=== PATIENT | female | born 1985 | race Caucasian/White ===

== ENCOUNTER 2016-09-18 23:15 | Emergency (ER) | payer SELFPAY ==
[~2016-09-18 23:15] MED LIST: ALPR1TAB2 PO; FERR-26 PO; ONDA4TAB7 PO; PRED20TA PO; PROAIR HFA8.5 GM INH; TRAZ100T12
[2016-09-19] MEDS ORDERED: IV NORMAL SALINE 1000ML BAG 1,000 ML IV ONE (00:15)
--- NOTE | 2016-09-19 00:24 | PHYS DOC ---
Past Medical History Past Medical History: No Pertinent History Past Surgical History: Cholecystectomy Alcohol Use: None Drug Use: None Adult General Chief Complaint Chief Complaint: VOMITING IN HPI HPI Patient is a 30 year old female who presents emergency room today with complaint of a headache, nausea, vomiting and diarrhea that began 2 days ago. Patient reports that she was thrown up 2-3 times within the past 24 hours. She denies any bilious, bloody or coffee-ground emesis. She reports 2 loose bowel movements within the past 24 hours. She denies any black or bloody stools. She denies abdominal pain. Patient reports that she is approximately 7 weeks . She denies pelvic pain, vaginal bleeding or vaginal discharge. She denies dysuria, hematuria or flank pain. She denies any fevers or chills. Patient states that she's been having a headache and which Tylenol has not been helping to relieve her headache. She attributes to this is been dehydrated. She states she only has headaches like this when she is dehydrated is convinced that if she receives a IV, she will feel much better. Review of Systems Review of Systems Constitutional: Denies fever or chills [] Eyes: Denies change in visual acuity, redness, or eye pain [] HENT: Denies nasal congestion or sore throat [] Respiratory: Denies cough or shortness of breath [] Cardiovascular: No additional information not addressed in HPI [] GI: Denies abdominal pain, nausea, vomiting, bloody stools or diarrhea [] : Denies dysuria or hematuria [] Musculoskeletal: Denies back pain or joint pain [] Integument: Denies rash or skin lesions [] Neurologic: Denies headache, focal weakness or sensory changes [] Endocrine: Denies polyuria or polydipsia [] Current Medications Current Medications Current Medications Medications (Trade) Dose Ordered Sig/Isabel Start Time Stop Time Status Last Admin Dose Admin Diphenhydramine HCl 25 mg 25 mg 1X ONCE 09/19/16 01:15 09/19/16 01:16 DC 09/19/16 01:05 25 MG Metoclopramide HCl (Reglan) 10 mg 1X ONCE 09/19/16 01:15 09/19/16 01:16 DC 09/19/16 01:04 10 MG Sodium Chloride (Iv Sodium Chloride 0.9% 500ml Bag) 500 ml @ 500 mls/hr 1X ONCE 09/19/16 01:15 09/19/16 02:14 09/19/16 01:04 500 MLS/HR Sodium Chloride (Iv Sodium Chloride 0.9% 1000ml Bag) 1,000 ml @ 1,000 mls/hr 1X ONCE 09/19/16 00:15 09/19/16 01:14 DC 09/19/16 00:19 1,000 MLS/HR Allergies Allergies Allergies Coded Allergies Type Severity Reaction Last Updated Verified No Known Drug Allergies 11/27/14 No Physical Exam Physical Exam Constitutional: Well developed, well nourished, no acute distress, non-toxic appearance. Patient is lying in a left lateral, position no acute distress. HENT: Normocephalic, atraumatic, bilateral external ears normal, oropharynx tachycardia, no oral exudates, nose normal. [] Eyes: PERRLA, EOMI, conjunctiva normal, no discharge. [] Neck: Normal range of motion, no tenderness, supple, no stridor. There is no meningismus. There is no cervical lymphadenopathy. Cardiovascular:Heart rate 102 with regular rhythm, no murmur Lungs & Thorax: Bilateral breath sounds clear to auscultation [] Abdomen: Abdomen is soft and nondistended. There are normoactive bowel sounds in all 4 quadrants. There is no palpable defect to the abdominal wall or pulsatile mass. There is no focal area of tenderness, rebound or guarding. Skin: Warm, dry, no erythema, no rash. Back: No tenderness, no CVA tenderness. [] Extremities: No tenderness, no cyanosis, no clubbing, ROM intact, no edema. [] Neurologic: Alert and oriented X 3, normal motor function, normal sensory function, no focal deficits noted. Psychologic: Affect normal, judgement normal, mood normal. [] Current Patient Data Vital Signs Vital Signs Date Time Temp Pulse Resp B/P Pulse Ox O2 Delivery O2 Flow Rate FiO2 09/19/16 01:00 93 16 100/62 99 09/18/16 23:20 97.9 Room Air 97.9 EKG EKG [] Radiology/Procedures Radiology/Procedures [] Course & Med Decision Making Course & Med Decision Making Looking back in to patient's visit history here at this emergency department, she appears to have some underlying psychiatric problems. At this time, there is no point of contention this patient is convinced that a liter of normal saline will fix her problems. Patient received a liter of normal saline. She states that she still has a headache after seeing liter saline. Repeat order a half liter more saline and given some Reglan and Benadryl on board to help with her headache. I informed the patient that we would not be using any nonsteroidal anti- inflammatories or narcotics to treat her headache. After receiving the Reglan and Benadryl, patient reported that she felt much better like to go home. Dragon Disclaimer Dragon Disclaimer This electronic medical record was generated, in whole or in part, using a voice recognition dictation system. Departure Departure Impression: Primary Impression: Viral syndrome Disposition: HOME, SELF-CARE Condition: IMPROVED Referrals: Shayna BEAUCHAMP MD (PCP) Patient Instructions: Viral Syndrome Additional Instructions: 1. Take the medication as prescribed. You can also continue to take acetaminophen every 4-6 hours. 2. Review the discharge instructions provided for self-care and reasons to return to the emergency department. 3. You can call [phone] Tuesday to schedule an appointment with an web marketing manager to establish ongoing care for your current . Scripts Diphenhydramine Hcl (Benadryl)25 Mg Capsule1 Cap PO every 8 hours eadache and nausea #20 CAP Ref 1 Prov:SHERRI SAMPSON 09/19/16 Metoclopramide Hcl (Reglan)10 Mg Tablet1 Tab PO every 8 hours PRN headache and nausea #20 TAB Prov:SHERRI SAMPSON 09/19/16 SHERRI SAMPSON Sep 19, 2016 00:24
[2016-09-19 01:00] VITALS: BP 100/62
[2016-09-19] MEDS ORDERED: METO10TA81 PO (01:13)
[2016-09-19] MEDS ORDERED: DIPH25CA58 PO (01:13)
[2016-09-19] MEDS ORDERED: IV NORMAL SALINE 500ML BAG 500 ML IV ONE (01:15)
[2016-09-19] MEDS ORDERED: METOCLOPRAMIDE HCL 10 MG/2 ML VIAL. IV ONE (01:15)
[2016-09-19] MEDS ORDERED: DIPHENHYDRAMINE 50 MG/ML VIAL IVP ONE (01:15)
== END 2016-09-19 01:35 | disposition home or self-care (01) ==
LOC: ER 23:15
DX: O98.511 Other viral diseases complicating pregnancy, first trimester (principal); B34.9 Viral infection, unspecified; Z3A.01 Less than 8 weeks gestation of pregnancy
CPT/HCPCS: 81025; 96361; 96374; 96375; 99284; J1200; J2765; J7030; J7040

== ENCOUNTER 2017-08-24 20:02 | Emergency (ER) | payer OTHER ==
[2017-08-24 20:35] LABS: URINE HCG POC HCG NEGATIVE (Negative)
[2017-08-24] MEDS: ONDANSETRON ODT 4 MG TAB.RAPDIS. PO (21:26)
== END 2017-08-24 21:27 | disposition home or self-care (01) ==
LOC: ER 20:02
DX: R11.2 Nausea with vomiting, unspecified (principal); R19.7 Diarrhea, unspecified; Z90.49 Acquired absence of other specified parts of digestive tract
CPT/HCPCS: 81025; 99283; Q0162

== ENCOUNTER 2019-10-07 20:29 | Emergency (ER) | payer MEDICAID, OTHER ==
[~2019-10-07] VITALS: Ht 144.8 cm; Wt 49.5 kg
[~2019-10-07 20:29] MED LIST changes: +ALBU2.5V8 INH; +AZIT250T PO; +DIPH25CA58 PO; -FERR-26 PO; +FERR325T14 PO; +METO10TA81 PO; -PROAIR HFA8.5 GM INH; +TRAZ-123; -TRAZ100T12
[2019-10-07] MEDS ORDERED: IV NORMAL SALINE 1000ML BAG 1,000 ML IV SCH (21:15)
[2019-10-07] MEDS ORDERED: ONDANSETRON PF 4 MG/2 ML VIAL. IV ONE (21:15)
[2019-10-07 21:32] LABS: BASO # 0.1 x10^3/uL (0.0-0.2); BASO % 1 % (0-3); EOS # 0.1 x10^3/uL (0.0-0.7); EOS % 2 % (0-3); HEMATOCRIT 41.2 % (36.0-47.0); HEMOGLOBIN 13.7 g/dL (12.0-15.5); LYMPH # 2.4 x10^3/uL (1.0-4.8); LYMPH % 31 % (24-48); MEAN CORPUSCULAR HEMOGLOBIN 29 pg (25-35); MEAN CORPUSCULAR HGB CONC 33 g/dL (31-37); MEAN CORPUSCULAR VOLUME 87 fL (79-100); MONO # 0.5 x10^3/uL (0.0-1.1); MONO % 6 % (0-9); NEUT # 4.8 x10^3/uL (1.8-7.7); NEUT % 60 % (31-73); PLATELET COUNT 269 x10^3/uL (140-400); RED BLOOD COUNT 4.74 x10^6/uL (3.50-5.40); RED CELL DISTRIBUTION WIDTH 13.7 % (11.5-14.5); WHITE BLOOD COUNT 7.9 x10^3/uL (4.0-11.0)
[2019-10-07 21:43] LABS: CALCIUM 8.6 mg/dL (8.5-10.1); CREATININE 0.8 mg/dL (0.6-1.0); GFR 83.7; POTASSIUM 3.6 mmol/L (3.5-5.1)
[2019-10-07 21:48] LABS: ALBUMIN 4.2 g/dL (3.4-5.0); ALBUMIN/GLOBULIN RATIO 1.2 (1.0-1.7); TOTAL BILIRUBIN 0.7 mg/dL (0.2-1.0); TOTAL PROTEIN 7.7 g/dL (6.4-8.2)
[2019-10-07 22:17] LABS: BILIRUBIN,URINE NEGATIVE (NEG); CLARITY,URINE CLEAR; COLOR,URINE YELLOW; NITRITE,URINE NEGATIVE (NEG); PROTEIN,URINE NEGATIVE (NEG-TRACE)
--- NOTE | 2019-10-07 22:26 | PHYS DOC ---
Past Medical History Past Medical History: Anxiety Past Surgical History: Cholecystectomy Smoking Status: Never Smoker Alcohol Use: None Drug Use: None Adult General Chief Complaint Chief Complaint: NAUSEA/VOMITING/DIARRHA HPI HPI Patient is a 33 year old female with history of anxiety and cholecystectomy who presents with complaint of nausea and vomiting and diarrhea. Patient complaining of episode of nausea and vomiting and diarrhea for the last 3 days and states she had 4 episodes of diarrhea and 3 episodes of vomiting today without abdominal pain, fever and chills. Patient complaining of decrease of appetite and urine output and states she had sick contact at home. Review of Systems Review of Systems Constitutional: Denies fever or chills [] Eyes: Denies change in visual acuity, redness, or eye pain [] HENT: Denies nasal congestion or sore throat [] Respiratory: Denies cough or shortness of breath [] Cardiovascular: No additional information not addressed in HPI [] GI: Reports abdominal pain, nausea, vomiting, diarrhea [] : Denies dysuria or hematuria [] Musculoskeletal: Denies back pain or joint pain [] Integument: Denies rash or skin lesions [] Neurologic: Denies headache, focal weakness or sensory changes [] Endocrine: Denies polyuria or polydipsia [] All other systems were reviewed and found to be within normal limits, except as documented in this note. Current Medications Current Medications Current Medications Medications (Trade) Dose Ordered Sig/Isabel Start Time Stop Time Status Last Admin Dose Admin Ondansetron HCl (Zofran) 4 mg 1X ONCE 10/07/19 21:15 10/07/19 21:16 DC 10/07/19 21:28 4 MG Sodium Chloride 1,000 ml @ 1,000 mls/hr Q1H 10/07/19 21:15 10/07/19 22:14 DC 10/07/19 21:28 1,000 MLS/HR Allergies Allergies Allergies Coded Allergies Type Severity Reaction Last Updated Verified No Known Drug Allergies 11/27/14 No Physical Exam Physical Exam Constitutional: Well developed, well nourished, mild distress, non-toxic appearance. [] HENT: Normocephalic, atraumatic, bilateral external ears normal, oropharynx moist, no oral exudates, nose normal. [] Eyes: PERRLA, EOMI, conjunctiva normal, no discharge. [] Neck: Normal range of motion, no tenderness, supple, no stridor. [] Cardiovascular:Heart rate regular rhythm, no murmur [] Lungs & Thorax: Bilateral breath sounds clear to auscultation [] Abdomen: Bowel sounds normal, soft, no tenderness, no masses, no pulsatile masses. [] Skin: Warm, dry, no erythema, no rash. [] Back: No tenderness, no CVA tenderness. [] Extremities: No tenderness, no cyanosis, no clubbing, ROM intact, no edema. [] Neurologic: Alert and oriented X 3, normal motor function, normal sensory function, no focal deficits noted. [] Psychologic: Affect normal, judgement normal, mood normal. [] Current Patient Data Vital Signs Vital Signs Date Time Temp Pulse Resp B/P (MAP) Pulse Ox O2 Delivery O2 Flow Rate FiO2 10/07/19 22:42 70 16 108/69 (82) 98 Room Air 10/07/19 20:35 98.1 98.1 Lab Values Laboratory Tests Test 10/07/19 21:21 10/07/19 22:09 White Blood Count 7.9 x10^3/uL (4.0-11.0) Red Blood Count 4.74 x10^6/uL (3.50-5.40) Hemoglobin 13.7 g/dL (12.0-15.5) Hematocrit 41.2 % (36.0-47.0) Mean Corpuscular Volume 87 fL (79-100) Mean Corpuscular Hemoglobin 29 pg (25-35) Mean Corpuscular Hemoglobin Concent 33 g/dL (31-37) Red Cell Distribution Width 13.7 % (11.5-14.5) Platelet Count 269 x10^3/uL (140-400) Neutrophils (%) (Auto) 60 % (31-73) Lymphocytes (%) (Auto) 31 % (24-48) Monocytes (%) (Auto) 6 % (0-9) Eosinophils (%) (Auto) 2 % (0-3) Basophils (%) (Auto) 1 % (0-3) Neutrophils # (Auto) 4.8 x10^3/uL (1.8-7.7) Lymphocytes # (Auto) 2.4 x10^3/uL (1.0-4.8) Monocytes # (Auto) 0.5 x10^3/uL (0.0-1.1) Eosinophils # (Auto) 0.1 x10^3/uL (0.0-0.7) Basophils # (Auto) 0.1 x10^3/uL (0.0-0.2) Sodium Level 143 mmol/L (136-145) Potassium Level 3.6 mmol/L (3.5-5.1) Chloride Level 107 mmol/L (98-107) Carbon Dioxide Level 25 mmol/L (21-32) Anion Gap 11 (6-14) Blood Urea Nitrogen 11 mg/dL (7-20) Creatinine 0.8 mg/dL (0.6-1.0) Estimated GFR (Cockcroft-Gault) 83.7 BUN/Creatinine Ratio 14 (6-20) Glucose Level 99 mg/dL (70-99) Calcium Level 8.6 mg/dL (8.5-10.1) Total Bilirubin 0.7 mg/dL (0.2-1.0) Aspartate Amino Transferase (AST) 16 U/L (15-37) Alanine Aminotransferase (ALT) 19 U/L (14-59) Alkaline Phosphatase 57 U/L (46-116) Creatine Kinase 83 U/L (26-192) Total Protein 7.7 g/dL (6.4-8.2) Albumin 4.2 g/dL (3.4-5.0) Albumin/Globulin Ratio 1.2 (1.0-1.7) Lipase 113 U/L (73-393) Urine Collection Type Unknown Urine Color Yellow Urine Clarity Clear Urine pH 5.0 Urine Specific Mchenry >=1.030 Urine Protein Negative mg/dL (NEG-TRACE) Urine Glucose (UA) Negative mg/dL (NEG) Urine Ketones (Stick) Negative mg/dL (NEG) Urine Blood Negative (NEG) Urine Nitrite Negative (NEG) Urine Bilirubin Negative (NEG) Urine Urobilinogen Dipstick 1.0 mg/dL (0.2 mg/dL) Urine Leukocyte Esterase Negative (NEG) Urine RBC 0 /HPF (0-2) Urine WBC 0 /HPF (0-4) Urine Squamous Epithelial Cells Many /LPF Urine Bacteria Few /HPF (0-FEW) Urine Mucus Mod /LPF Laboratory Tests 10/07/19 21:21 Laboratory Tests 10/07/19 21:21 EKG EKG [] Radiology/Procedures Radiology/Procedures [] Course & Med Decision Making Course & Med Decision Making Pertinent Labs reviewed. (See chart for details) I've spoken with the patient and/or caregivers. I've explained the patient's condition, diagnosis and treatment plan based on information available to me at this time. I've answered the patient's and/or caregivers questions and addressed any concerns. The patient and/or caregivers have a good understanding the patient's diagnosis, condition and treatment plan as can be expected at this point. Vital signs have been stabilized. The patient's condition is stable for discharge from the emergency department. The patient will pursue further outpatient evaluation with her primary care provider or other designated consulting physician as outlined in the discharge instructions. Patient and/or caregivers are agreeable to this plan of care and follow-up instructions have been explained in detail. The patient and/or caregivers have received these instructions in written format and expressed understanding of these discharge instructions. The patient and her caregivers are aware that if any significant change in condition or worsening of symptoms should prompt him to immediately return to this of the closest emergency department. If an emergent department is not readily available I would encourage him to call 911. Dragon Disclaimer Dragon Disclaimer This electronic medical record was generated, in whole or in part, using a voice recognition dictation system. Departure Departure Impression: Primary Impression: Acute gastroenteritis Disposition: 01 HOME, SELF-CARE (At 2230) Condition: IMPROVED Referrals: Shayna BEAUCHAMP MD (PCP) Patient Instructions: Viral Gastroenteritis Additional Instructions: Drink plenty of liquids Follow-up with your primary care physician in 3-5 days Return to ER if not getting better Do not eat solid food for the next 24 hours May take Imodium for diarrhea as needed Thank you for visiting [facility]. We appreciate you trusting us with your care. If any additional problems come up don't hesitate to return to visit us. Please follow up with your primary care provider so they can plan additional care if needed and know about the problem that you had. If symptoms worsen come back to the Emergency Department. Any concerning symptoms that start such as chest pain, shortness of air, weakness or numbness on one side of the body, running high fevers or any other concerning symptoms return to the ER. Scripts Ondansetron Hcl (ZOFRAN) 4 Mg Tablet 1 TAB PO PRN Q6-8HRS for nausea, #12 TAB Prov: LAWRENCE BURCH MD 10/07/19 LAWRENCE BURCH MD Oct 07, 2019 22:25
[2019-10-07 22:32] LABS: BACTERIA,URINE FEW /HPF (0-FEW); RBC,URINE 0 /HPF (0-2); SQUAMOUS EPITHELIAL CELL,UR MANY /LPF; WBC,URINE 0 /HPF (0-4)
[2019-10-07] MEDS ORDERED: ONDA4TAB7 PO (22:36)
[2019-10-07 22:42] VITALS: BP 108/69
== END 2019-10-07 23:07 | disposition home or self-care (01) ==
LOC: ER 20:29
DX: K52.9 Noninfective gastroenteritis and colitis, unspecified (principal); Z90.49 Acquired absence of other specified parts of digestive tract
CPT/HCPCS: 36415; 80053; 81001; 82550; 83690; 85025; 96361; 96374; 99285; J2405; J7030

== ENCOUNTER 2019-12-01 14:05 | Emergency (ER) | payer MEDICAID ==
[~2019-12-01] VITALS: Ht 144.8 cm; Wt 50.0 kg
[2019-12-01 14:20] VITALS: BP 141/90
--- NOTE | 2019-12-01 14:33 | PHYS DOC ---
Past Medical History Past Medical History: Anxiety Past Surgical History: Cholecystectomy Smoking Status: Never Smoker Alcohol Use: None Drug Use: None General Adult EDM: Chief Complaint: VAGINAL BLEEDING HPI: HPI: Patient is a 34-year-old female - 1 miscarriage and 1 who presents stating she thinks she is 2 to 3 weeks . She took a test last night and it was positive. She states she had some spotting today and became concerned that she is having another miscarriage. She does have some lower abdominal discomfort. No fever chills or sweats no nausea or vomiting. [] Review of Systems: Review of Systems: Constitutional: Denies fever or chills. [] Eyes: Denies change in visual acuity. [] HENT: Denies nasal congestion or sore throat. [] Respiratory: Denies cough or shortness of breath. [] Cardiovascular: Denies chest pain or edema. [] GI: Denies abdominal pain, nausea, vomiting, bloody stools or diarrhea. [] : Per HPI [] Musculoskeletal: Denies back pain or joint pain. [] Integument: Denies rash. [] Neurologic: Denies headache, focal weakness or sensory changes. [] Endocrine: Denies polyuria or polydipsia. [] Lymphatic: Denies swollen glands. [] Psychiatric: Denies depression or anxiety. [] Heart Score: Risk Factors: Risk Factors: DM, Current or recent (<one month) smoker, HTN, HLP, family history of CAD, obesity. Risk Scores: Score 0 - 3: 2.5% MACE over next 6 weeks - Discharge Home Score 4 - 6: 20.3% MACE over next 6 weeks - Admit for Clinical Observation Score 7 - 10: 72.7% MACE over next 6 weeks - Early Invasive Strategies Allergies: Allergies: Allergies Coded Allergies Type Severity Reaction Last Updated Verified No Known Drug Allergies 11/27/14 No Physical Exam: PE: Constitutional: Well developed, well nourished, no acute distress, non-toxic appearance. [] HENT: Normocephalic, atraumatic, bilateral external ears normal, oropharynx moist, no oral exudates, nose normal. [] Eyes: PERRLA, EOMI, conjunctiva normal, no discharge. [] Neck: Normal range of motion, no tenderness, supple, no stridor. [] Cardiovascular:Heart rate regular rhythm, no murmur [] Lungs & Thorax: Bilateral breath sounds clear to auscultation [] Abdomen: Bowel sounds normal, soft, no tenderness, no masses, no pulsatile masses. [] Skin: Warm, dry, no erythema, no rash. [] Back: No tenderness, no CVA tenderness. [] Extremities: No tenderness, no cyanosis, no clubbing, ROM intact, no edema. [] Neurologic: Alert and oriented X 3, normal motor function, normal sensory function, no focal deficits noted. [] Psychologic: Anxious [] Current Patient Data: Labs: Laboratory Tests Test 12/01/19 14:16 POC Urine HCG, Qualitative Hcg negative (Negative) EKG: EKG: [] Radiology/Procedures: Radiology/Procedures: [] Course & Med Decision Making: Course & Med Decision Making Pertinent Labs and Imaging studies reviewed. (See chart for details) [] Dragon Disclaimer: Dragon Disclaimer: This electronic medical record was generated, in whole or in part, using a voice recognition dictation system. Departure Departure Impression: Primary Impression: Dysfunctional uterine bleeding Disposition: HOME, SELF-CARE Condition: STABLE Referrals: Shayna BEAUCHAMP MD (PCP) Patient Instructions: Dysmenorrhea Additional Instructions: Follow-up with your primary care physician or your thread singer in the next 1 week for recheck. FLACO MORRISSEY DO December 01, 2019 14:33
[2019-12-01 14:47] LABS: BILIRUBIN,URINE NEGATIVE (NEG); CLARITY,URINE CLEAR; COLOR,URINE YELLOW; NITRITE,URINE NEGATIVE (NEG); PH,URINE 5.5 (<5.0-8.0); PROTEIN,URINE NEGATIVE (NEG-TRACE); UROBILINOGEN,URINE 0.2 mg/dL (0.2 mg/dL)
[2019-12-01 15:04] LABS: BACTERIA,URINE 0 /HPF (0-FEW); RBC,URINE TNTC /HPF (0-2); SQUAMOUS EPITHELIAL CELL,UR OCC /LPF; WBC,URINE RARE /HPF (0-4)
[2019-12-01 15:22] LABS: BASO # 0.1 x10^3/uL (0.0-0.2); BASO % 1 % (0-3); EOS # 0.1 x10^3/uL (0.0-0.7); EOS % 1 % (0-3); HEMATOCRIT 40.1 % (36.0-47.0); HEMOGLOBIN 13.6 g/dL (12.0-15.5); LYMPH # 1.9 x10^3/uL (1.0-4.8); LYMPH % 19 % (24-48); MEAN CORPUSCULAR HEMOGLOBIN 29 pg (25-35); MEAN CORPUSCULAR HGB CONC 34 g/dL (31-37); MEAN CORPUSCULAR VOLUME 86 fL (79-100); MONO # 0.5 x10^3/uL (0.0-1.1); MONO % 6 % (0-9); NEUT # 7.1 x10^3/uL (1.8-7.7); NEUT % 73 % (31-73); PLATELET COUNT 317 x10^3/uL (140-400); RED BLOOD COUNT 4.68 x10^6/uL (3.50-5.40); WHITE BLOOD COUNT 9.7 x10^3/uL (4.0-11.0)
[2019-12-01 15:30] LABS: CALCIUM 8.8 mg/dL (8.5-10.1); CREATININE 0.8 mg/dL (0.6-1.0); GFR 83.1; POTASSIUM 3.5 mmol/L (3.5-5.1)
[2019-12-01 15:36] LABS: ALBUMIN 3.9 g/dL (3.4-5.0); TOTAL BILIRUBIN 0.6 mg/dL (0.2-1.0); TOTAL PROTEIN 7.8 g/dL (6.4-8.2)
== END 2019-12-01 15:35 | disposition home or self-care (01) ==
LOC: ER 14:05
DX: N93.8 Other specified abnormal uterine and vaginal bleeding (principal); Z90.49 Acquired absence of other specified parts of digestive tract
CPT/HCPCS: 36415; 80053; 81001; 81025; 84702; 85025; 86900; 86901; 99283

== ENCOUNTER 2020-01-24 13:35 | Emergency (ER) | payer SELFPAY ==
[~2020-01-24] VITALS: Ht 144.8 cm; Wt 48.6 kg
[2020-01-24] MEDS ORDERED: IV NORMAL SALINE 1000ML BAG 1,000 ML IV SCH (13:55)
[2020-01-24 14:06] LABS: BILIRUBIN,URINE NEGATIVE (NEG); CLARITY,URINE CLEAR; NITRITE,URINE POSITIVE (NEG); PH,URINE 5.5 (<5.0-8.0); PROTEIN,URINE NEGATIVE (NEG-TRACE)
[2020-01-24 14:08] LABS: COLOR,URINE YELLOW
[2020-01-24 14:10] LABS: SQUAMOUS EPITHELIAL CELL,UR MOD /LPF
[2020-01-24 14:11] LABS: BACTERIA,URINE MODERATE /HPF (0-FEW); RBC,URINE 0 /HPF (0-2)
--- NOTE | 2020-01-24 14:11 | PHYS DOC ---
Past Medical History Past Medical History: No Pertinent History, Anxiety Past Surgical History: No Surgical History, Cholecystectomy Smoking Status: Never Smoker Alcohol Use: None Drug Use: None General Adult EDM: Chief Complaint: URINARY RETENTION HPI: HPI: Patient is a 34 year old female who presents with feeling like she is not emptying her bladder completely which is causing her to go to the bathroom more frequently. Patient reports that symptoms started 1 week ago. Her last menstrual period was December 31, 2019 she reports that she did take a test and it was negative. Patient denies any dysuria, fevers, chest pain, shortness of breath, hematuria, nausea vomiting or diarrhea, abdominal pain,, vaginal discharge, vaginal bleeding, or back pain. She denies any pain at this time. She denies any health history, her surgical hx includes a cholecystectomy. Review of Systems: Review of Systems: Constitutional: Denies fever or chills. [] Eyes: Denies change in visual acuity. [] HENT: Denies nasal congestion or sore throat. [] Respiratory: Denies cough or shortness of breath. [] Cardiovascular: Denies chest pain or edema. [] GI: Denies abdominal pain, nausea, vomiting, or diarrhea. [] : Denies dysuria, reports urinary frequency, feeling like she is not emptying her bladder completely. [] Musculoskeletal: Denies back pain, CVA tenderness, joint pain. [] Integument: Denies rash. [] Neurologic: Denies headache, focal weakness or sensory changes. [] Lymphatic: Denies swollen glands. [] Psychiatric: Denies depression or anxiety. [] Heart Score: Risk Factors: Risk Factors: DM, Current or recent (<one month) smoker, HTN, HLP, family history of CAD, obesity. Risk Scores: Score 0 - 3: 2.5% MACE over next 6 weeks - Discharge Home Score 4 - 6: 20.3% MACE over next 6 weeks - Admit for Clinical Observation Score 7 - 10: 72.7% MACE over next 6 weeks - Early Invasive Strategies Current Medications: Current Medications Medications (Trade) Dose Ordered Sig/Isabel Start Time Stop Time Status Last Admin Dose Admin Sodium Chloride 1,000 ml @ 100 mls/hr Q10H 01/24/20 13:55 01/25/20 13:54 Cancel Allergies: Allergies: Allergies Coded Allergies Type Severity Reaction Last Updated Verified No Known Drug Allergies 11/27/14 No Physical Exam: PE: Constitutional: Well developed, well nourished, no acute distress, non-toxic appearance. [] HENT: Normocephalic, atraumatic, bilateral external ears normal, nose normal. [] Eyes: PERRLA, EOMI, conjunctiva normal, no discharge. [] Neck: Normal range of motion, no stridor. [] Cardiovascular:Heart rate regular rhythm Lungs & Thorax: Respirations even and unlabored, no retractions, no respiratory distress Abdomen: soft, no tenderness Back: no CVA tenderness. Skin: Warm, dry, no erythema, no rash. [] Extremities: No cyanosis, ROM intact, no edema. [] Neurologic: Alert and oriented X 3, no focal deficits noted. [] Psychologic: Affect normal, judgement normal, mood normal. [] EKG: EKG: [] Radiology/Procedures: Radiology/Procedures: [] Course & Med Decision Making: Course & Med Decision Making Pertinent Labs and Imaging studies reviewed. (See chart for details) See HPI Patient is a 34-year-old female complaining of urinary retention. She reports that for the last week she felt like she has not been able to empty her bladder completely and therefore has been going to the bathroom more frequently. She denies any other urinary complaints like hematuria and dysuria. She denies abdominal pain and any back pain. Abdomen is soft and nontender and patient does not have any CVA tenderness with palpation. A post void bladder scan was performed which showed 65 mls still in bladder. A urine sample was obtained to test for urinary tract infection. Urine hCG will also be performed. [] Dragon Disclaimer: Dragon Disclaimer: This electronic medical record was generated, in whole or in part, using a voice recognition dictation system. Departure Departure Impression: Primary Impression: UTI (lower urinary tract infection) Disposition: 01 HOME, SELF-CARE Condition: STABLE Referrals: Shayna BEAUCHAMP MD (PCP) Patient Instructions: Urinary Tract Infection, [id number] Additional Instructions: Fill prescription(s) and use as directed. Avoid bladder irritants such as caffeine, carbonation, and spicy foods. Increase clear fluids. Follow up with your primary care doctor if symptoms persist, return to the ER if symptoms worsen. Scripts Phenazopyridine Hcl (PYRIDIUM) 200 Mg Tablet 1 TAB PO TID for urinary discomfort for 3 Days, #9 TAB 0 Refills Prov: BHAVNA REHMAN APRN 01/24/20 Cephalexin (KEFLEX) 500 Mg Capsule 500 MG PO BID for 7 Days, #14 CAP 0 Refills Prov: BHAVNA REHMAN APRN 01/24/20 Justicifation of Admission Dx: Justifications for Admission: Justification of Admission Dx: N/A BHAVNA REHMAN APRN Jan 24, 2020 14:11
[2020-01-24] MEDS ORDERED: CEPH-264 PO (14:36)
[2020-01-24] MEDS ORDERED: PHEN-318 PO (14:36)
[2020-01-24 14:54] VITALS: BP 131/75
== END 2020-01-24 14:54 | disposition home or self-care (01) ==
LOC: ER 13:35
DX: N39.0 Urinary tract infection, site not specified (principal); R33.9 Retention of urine, unspecified; F41.9 Anxiety disorder, unspecified; Z90.49 Acquired absence of other specified parts of digestive tract
CPT/HCPCS: 81001; 87086; 99284

== ENCOUNTER 2020-03-11 23:49 | Emergency (ER) | payer OTHER ==
[~2020-03-11] VITALS: Ht 144.8 cm; Wt 49.5 kg
[~2020-03-11 23:49] MED LIST changes: +CEPH-264 PO; +PHEN-318 PO
[2020-03-12] MEDS ORDERED: cefTRIAXone IM 250 MG VIAL IM ONE
[2020-03-12] MEDS ORDERED: AZITHROMYCIN 250 MG TABLET. PO ONE
[2020-03-12] MEDS ORDERED: ONDANSETRON ODT 4 MG TAB.RAPDIS. PO ONE
--- NOTE | 2020-03-12 00:03 | PHYS DOC ---
Past Medical History Past Medical History: No Pertinent History, Anxiety Past Surgical History: Cholecystectomy Smoking Status: Never Smoker Alcohol Use: None Drug Use: None General Adult EDM: Chief Complaint: SEXUALLY TRANSMITTED DISEASE HPI: HPI: Patient is a 34 year old female who presents with a chief complaint gonorrhea exposure. Patient got a call from her ex boyfriend who she was less intimate with 3 weeks ago saying that he tested positive for gonorrhea. Patient denies abdominal pain fever or vaginal discharge. She does state that she has little irritation in the vaginal area but otherwise feels normal. Review of Systems: Review of Systems: Constitutional: Denies fever or chills. [] Eyes: Denies change in visual acuity. [] HENT: Denies nasal congestion or sore throat. [] Respiratory: Denies cough or shortness of breath. [] Cardiovascular: Denies chest pain or edema. [] GI: Denies abdominal pain, nausea, vomiting, bloody stools or diarrhea. [] : Denies dysuria. Denies vaginal discharge but has some vaginal irritation Musculoskeletal: Denies back pain or joint pain. [] Integument: Denies rash. [] Neurologic: Denies headache, focal weakness or sensory changes. [] Endocrine: Denies polyuria or polydipsia. [] Lymphatic: Denies swollen glands. [] Psychiatric: Denies depression or anxiety. [] Heart Score: Risk Factors: Risk Factors: DM, Current or recent (<one month) smoker, HTN, HLP, family history of CAD, obesity. Risk Scores: Score 0 - 3: 2.5% MACE over next 6 weeks - Discharge Home Score 4 - 6: 20.3% MACE over next 6 weeks - Admit for Clinical Observation Score 7 - 10: 72.7% MACE over next 6 weeks - Early Invasive Strategies Current Medications: Current Medications Medications (Trade) Dose Ordered Sig/Isabel Start Time Stop Time Status Last Admin Dose Admin Azithromycin (Zithromax) 1,000 mg 1X ONCE 03/12/20 00:00 03/12/20 00:02 DC Ceftriaxone Sodium (Rocephin Im) 250 mg 1X ONCE 03/12/20 00:00 03/12/20 00:02 DC Ondansetron HCl (Zofran Odt) 4 mg 1X ONCE 03/12/20 00:00 03/12/20 00:02 DC Allergies: Allergies: Allergies Coded Allergies Type Severity Reaction Last Updated Verified No Known Drug Allergies 11/27/14 No Physical Exam: PE: Constitutional: Well developed, well nourished, no acute distress, non-toxic appearance. [] HENT: Normocephalic, atraumatic, bilateral external ears normal, no trismus, nose normal. [] Eyes: PERRLA, EOMI, conjunctiva normal, no discharge. [] Neck: Normal range of motion, no tenderness, supple, no stridor. [] Cardiovascular:Heart rate regular rhythm, peripheral pulses intact Lungs & Thorax: Bilateral breath sounds clear no respiratory distress Abdomen: , soft, no tenderness, no masses, no pulsatile masses. [] : Entry Level Programmer present, external exam normal. Mild to moderate amount of white vaginal discharge, no cervical motion tenderness no adnexal tenderness or masses. Skin: Warm, dry, no erythema, no rash. [] Back: No tenderness, no CVA tenderness. [] Extremities: No tenderness, no cyanosis, no clubbing, ROM intact, no edema. [] Neurologic: Alert and oriented X 3, normal motor function, normal sensory function, no focal deficits noted. [] Psychologic: Affect normal, judgement normal, mood normal. [] Current Patient Data: Labs: Laboratory Tests Test 03/12/20 00:14 Bedside Urine HCG, Qualitative Hcg negative Current Medications Medications (Trade) Dose Ordered Sig/Isabel Route PRN Reason Start Time Stop Time Status Last Admin Dose Admin Ceftriaxone Sodium (Rocephin Im) 250 mg 1X ONCE IM 03/12/20 00:00 03/12/20 00:02 DC Azithromycin (Zithromax) 1,000 mg 1X ONCE PO 03/12/20 00:00 03/12/20 00:02 DC Ondansetron HCl (Zofran Odt) 4 mg 1X ONCE PO 03/12/20 00:00 03/12/20 00:02 DC EKG: EKG: [] Radiology/Procedures: Radiology/Procedures: [] Course & Med Decision Making: Course & Med Decision Making Pertinent Labs and Imaging studies reviewed. (See chart for details) [] 34-year-old female with a gonorrhea exposure. We will treat her with Rocephin here and Zithromax. Naveen Disclaimer: Naveen Disclaimer: This electronic medical record was generated, in whole or in part, using a voice recognition dictation system. Departure Departure Impression: Primary Impression: Bacterial vaginosis Additional Impression: Exposure to gonorrhea Disposition: 01 HOME, SELF-CARE Condition: STABLE Referrals: Shayna BEAUCHAMP MD (PCP) 2-3 DAYS Patient Instructions: Bacterial Vaginosis, Gonorrhea, Females and Males Additional Instructions: EMERGENCY DEPARTMENT GENERAL DISCHARGE INSTRUCTIONS THANK YOU for coming to [facility] Emergency Department (ED) today and trusting us with your care. We trust that you had a positive experience in our Emergency Department. If you wish to speak to the department Management you can contact the aquatics assistant department head at . YOUR FOLLOW UP INSTRUCTIONS ARE FOLLOWS: Do you have a private doctor? If you do not have a private doctor, please ask for a resource list of physicians or clinics that may be able to assist you with follow up care. The Emergency Physician has interpreted your x-rays. The X-ray specialist will also review them. If there is a change in the findings you will be notified in 48 hours when at all possible. A lab test or lab culture may have been done, your results will be reviewed and you will be notified if you need a change in treatment. ADDITIONAL INSTRUCTIONS AND INFORMATION Your care today has been supervised by a physician who is specially trained in emergency care. Many problems require more than one evaluation for a complete diagnosis and treatment. We recommend that you schedule your follow up appointment as recommended to ensure complete treatment of your illness or injury. If you are unable to obtain follow up care and continue to have a problem, or if your condition worsens we recommend that you return to the ED. We are not able to safely determine your condition over the phone nor are we able to give sound medical advice over the phone. For these safety reasons, if you call for medical advice we will ask you to come to the ED for further evaluation If you have any questions regarding these discharge instructions please call the ED at . SAFETY INFORMATION In the interest of safety, wellness, and injury prevention; we encourage you to wear your seatbelt, if you smoke; quit smoking, and we encourage your family to use protective helmet for bicycling and other sporting events that present an increased risk for head injury. IF YOUR SYMPTOMS WORSEN OR NEW SYMPTOMS DEVELOP, OR YOU HAVE CONCERNS ABOUT YOUR CONDITION; OR IF YOUR CONDITION WORSENS WHILE YOU ARE WAITING FOR YOUR FOLLOW UP APPOINTMENT; EITHER CONTACT YOUR PRIMARY CARE DOCTOR, THE PHYSICIAN WHOSE NAME AND NUMBER YOU WERE GIVEN, OR RETURN TO THE ED IMMEDIATELY. Scripts Metronidazole (FLAGYL) 500 Mg Tablet 1 TAB PO TID, #30 TAB Prov: SUZANNA ARANDA MD 03/12/20 Justicifation of Admission Dx: Justifications for Admission: Justification of Admission Dx: N/A SUZANNA ARANDA MD Mar 12, 2020 00:03
[2020-03-12 00:20] VITALS: BP 117/67
[2020-03-12 00:20] LABS: BILIRUBIN,URINE NEGATIVE (NEG); CLARITY,URINE CLEAR; COLOR,URINE YELLOW; NITRITE,URINE NEGATIVE (NEG); PROTEIN,URINE NEGATIVE (NEG-TRACE); UROBILINOGEN,URINE 0.2 mg/dL (0.2 mg/dL)
[2020-03-12 00:39] LABS: SQUAMOUS EPITHELIAL CELL,UR MOD /LPF
[2020-03-12 00:40] LABS: BACTERIA,URINE FEW /HPF (0-FEW); RBC,URINE RARE /HPF (0-2)
[2020-03-12] MEDS ORDERED: METR500T PO (00:43)
== END 2020-03-12 00:51 | disposition home or self-care (01) ==
LOC: ER 23:49
DX: N76.0 Acute vaginitis (principal); B96.89 Other specified bacterial agents as the cause of diseases classified elsewhere; Z20.2 Contact with and (suspected) exposure to infections with a predominantly sexual mode of transmission; Z90.49 Acquired absence of other specified parts of digestive tract
CPT/HCPCS: 81001; 81025; 87086; 87491; 87591; 96372; 99283; J0696; Q0111

== ENCOUNTER 2020-03-31 21:52 | Emergency (ER) | payer OTHER ==
[~2020-03-31] VITALS: Ht 144.8 cm; Wt 48.6 kg
[~2020-03-31 21:52] MED LIST changes: +METR500T PO
[2020-03-31 22:00] VITALS: BP 118/67
[2020-03-31 22:16] LABS: BILIRUBIN,URINE NEGATIVE (NEG); CLARITY,URINE CLEAR; COLOR,URINE YELLOW; NITRITE,URINE NEGATIVE (NEG); PROTEIN,URINE NEGATIVE (NEG-TRACE); UROBILINOGEN,URINE 0.2 mg/dL (0.2 mg/dL)
[2020-03-31 22:20] LABS: BACTERIA,URINE 0 /HPF (0-FEW); RBC,URINE TNTC /HPF (0-2); SQUAMOUS EPITHELIAL CELL,UR MOD /LPF; WBC,URINE 0 /HPF (0-4)
--- NOTE | 2020-03-31 22:21 | PHYS DOC ---
Past Medical History Past Medical History: No Pertinent History, Anxiety Past Surgical History: Cholecystectomy Smoking Status: Never Smoker Alcohol Use: None Drug Use: None General Adult EDM: Chief Complaint: PAIN ON URINATION HPI: HPI: Patient is a 34 year old female who presents to the ED today with dysuria that began today. Patient denies any fever, nausea, vomiting. Denies any abdominal pain. Denies any back pain. Review of Systems: Review of Systems: Constitutional: Denies fever or chills. [] Eyes: Denies change in visual acuity. [] HENT: Denies nasal congestion or sore throat. [] Respiratory: Denies cough or shortness of breath. [] Cardiovascular: Denies chest pain or edema. [] GI: Denies abdominal pain, nausea, vomiting, bloody stools or diarrhea. [] : Reports dysuria Musculoskeletal: Denies back pain or joint pain. [] Integument: Denies rash. [] Neurologic: Denies headache, focal weakness or sensory changes. [] Psychiatric: Denies depression or anxiety. [] Heart Score: Risk Factors: Risk Factors: DM, Current or recent (<one month) smoker, HTN, HLP, family history of CAD, obesity. Risk Scores: Score 0 - 3: 2.5% MACE over next 6 weeks - Discharge Home Score 4 - 6: 20.3% MACE over next 6 weeks - Admit for Clinical Observation Score 7 - 10: 72.7% MACE over next 6 weeks - Early Invasive Strategies Allergies: Allergies: Allergies Coded Allergies Type Severity Reaction Last Updated Verified No Known Drug Allergies 11/27/14 No Physical Exam: PE: Constitutional: Well developed, well nourished, no acute distress, non-toxic appearance. [] HENT: Normocephalic, atraumatic, bilateral external ears normal, oropharynx moist, no oral exudates, nose normal. [] Eyes: PERRLA, EOMI, conjunctiva normal, no discharge. [] Neck: Normal range of motion, no tenderness, supple, no stridor. [] Cardiovascular:Heart rate regular rhythm, no murmur [] Lungs & Thorax: Bilateral breath sounds clear to auscultation [] Abdomen: Bowel sounds normal, soft, no tenderness, no masses, no pulsatile masses. [] Skin: Warm, dry, no erythema, no rash. [] Back: No tenderness, no CVA tenderness. [] Extremities: No tenderness, no cyanosis, no clubbing, ROM intact, no edema. [] Neurologic: Alert and oriented X 3, normal motor function, normal sensory function, no focal deficits noted. [] Psychologic: Affect normal, judgement normal, mood normal. [] Current Patient Data: Labs: Laboratory Tests Test 03/31/20 22:15 POC Urine HCG, Qualitative Hcg negative (Negative) EKG: EKG: [] Radiology/Procedures: Radiology/Procedures: [] Course & Med Decision Making: Course & Med Decision Making Pertinent Labs and Imaging studies reviewed. (See chart for details) This is a 34-year-old female patient presenting to the ED today with dysuria. She is currently on her menstrual cycle, urine analysis negative for any infection. Discharged on Pyridium. Instructed to push fluids. Follow-up with primary care doctor in 1 week Draghugo Disclaimer: Draghugo Disclaimer: This electronic medical record was generated, in whole or in part, using a voice recognition dictation system. Departure Departure Impression: Primary Impression: Dysuria Disposition: 01 HOME, SELF-CARE Condition: STABLE Referrals: Shayna BEAUCHAMP MD (PCP) Follow-up in 1 to 2 weeks Patient Instructions: Dysuria-Brief Additional Instructions: You were evaluated in the emergency room for dysuria. Your urine analysis is negative for infection. We put you on Pyridium, take it as needed for burning with urination. Follow-up with your own doctor in 1 to 2 weeks, push fluids. You can take Tylenol or Motrin as needed for pain to Scripts Phenazopyridine Hcl (PYRIDIUM) 100 Mg Tablet 1 TAB PO TID for urinary discomfort for 2 Days, #6 TAB 0 Refills Prov: JERMAIN AGUILAR APRN 03/31/20 Justicifation of Admission Dx: Justifications for Admission: Justification of Admission Dx: N/A JERMAIN AGUILAR APRN Mar 31, 2020 22:21
[2020-03-31] MEDS ORDERED: PHEN100T82 PO (22:27)
[2020-03-31] MEDS ORDERED: PHENAZOPYRIDINE 200 MG TABLET. PO ONE (23:00)
== END 2020-03-31 22:59 | disposition home or self-care (01) ==
LOC: ER 21:52
DX: R30.0 Dysuria (principal); F41.9 Anxiety disorder, unspecified; Z90.49 Acquired absence of other specified parts of digestive tract
CPT/HCPCS: 81001; 81025; 99283

== ENCOUNTER 2020-05-06 23:48 | Emergency (ER) | payer OTHER ==
[~2020-05-06] VITALS: Ht 144.8 cm; Wt 50.0 kg
[~2020-05-06 23:48] MED LIST changes: +PHEN100T82 PO
[2020-05-07 00:07] VITALS: BP 115/77
[2020-05-07 00:16] LABS: BILIRUBIN,URINE NEGATIVE (NEG); CLARITY,URINE CLEAR; COLOR,URINE YELLOW; NITRITE,URINE NEGATIVE (NEG); PH,URINE 5.5 (<5.0-8.0); PROTEIN,URINE NEGATIVE (NEG-TRACE); UROBILINOGEN,URINE 0.2 mg/dL (0.2 mg/dL)
[2020-05-07 00:20] LABS: RBC,URINE 0 /HPF (0-2); WBC,URINE 20-40 /HPF (0-4)
[2020-05-07 00:21] LABS: BACTERIA,URINE MODERATE /HPF (0-FEW)
[2020-05-07] MEDS ORDERED: CEPH-264 PO (01:12)
--- NOTE | 2020-05-07 01:12 | PHYS DOC ---
Past Medical History Past Medical History: No Pertinent History, Anxiety Past Surgical History: Cholecystectomy Smoking Status: Never Smoker Alcohol Use: None Drug Use: None General Adult EDM: Chief Complaint: PAIN ON URINATION HPI: HPI: Patient is a 34-year-old female who presents to the emergency room complaining of 2 days of dysuria. She denies any other symptoms. She denies any vaginal bleeding. She does not believe that is possible she has an STD but she would like to be treated and tested just in case. She denies any nausea, vomiting, diarrhea. Review of Systems: Review of Systems: Negative other than noted Heart Score: Risk Factors: Risk Factors: DM, Current or recent (<one month) smoker, HTN, HLP, family history of CAD, obesity. Risk Scores: Score 0 - 3: 2.5% MACE over next 6 weeks - Discharge Home Score 4 - 6: 20.3% MACE over next 6 weeks - Admit for Clinical Observation Score 7 - 10: 72.7% MACE over next 6 weeks - Early Invasive Strategies Allergies: Allergies: Allergies Coded Allergies Type Severity Reaction Last Updated Verified No Known Drug Allergies 11/27/14 No Physical Exam: PE: General: Awake, alert, NAD. Well Nourished, well hydrated. Cooperative HEENT: Atraumatic, EOMI, PERRL, airway patent, moist oral mucosa Neck: Supple, trachea midline Respiratory: CTA bilaterally, normal effort, no wheezing/crackles CV: RRR, no murmur, cap refill <2 GI: Soft, nondistended, nontender, no masses MSK: No obvious deformities Skin: Warm, dry, intact Neuro: A&O x3, speech NL, sensory and motor grossly intact, no focal deficits Psych: Normal affect, normal mood, not suicidal or homicidal Current Patient Data: Labs: Laboratory Tests Test 05/07/20 00:05 05/07/20 00:06 Urine Collection Type Unknown Urine Color Yellow Urine Clarity Clear Urine pH 5.5 (<5.0-8.0) Urine Specific [place] >=1.030 (1.000-1.030) Urine Protein Negative mg/dL (NEG-TRACE) Urine Glucose (UA) Negative mg/dL (NEG) Urine Ketones (Stick) Negative mg/dL (NEG) Urine Blood Negative (NEG) Urine Nitrite Negative (NEG) Urine Bilirubin Negative (NEG) Urine Urobilinogen Dipstick 0.2 mg/dL (0.2 mg/dL) Urine Leukocyte Esterase Small (NEG) Urine RBC 0 /HPF (0-2) Urine WBC 20-40 /HPF (0-4) Urine Squamous Epithelial Cells Many /LPF Urine Bacteria Moderate /HPF (0-FEW) Urine Mucus Marked /LPF POC Urine HCG, Qualitative Hcg negative (Negative) Vital Signs: Vital Signs Date Time Temp Pulse Resp B/P (MAP) Pulse Ox O2 Delivery O2 Flow Rate FiO2 05/07/20 00:07 98.4 72 20 115/77 (90) 100 Room Air 98.4 EKG: EKG: [] Radiology/Procedures: Radiology/Procedures: [] Course & Med Decision Making: Course & Med Decision Making Pertinent Labs and Imaging studies reviewed. (See chart for details) Patient is a 34-year-old female presents to the emergency room with dysuria. She would like to be treated for STDs. She declines a pelvic exam. She will be treated empirically and started on Keflex for UTI. Patient's test results and vitals while in the ED were fully reviewed and discussed with the patient. Patient is stable and at this time does not need admission to the hospital. We have discussed strict return precautions and the importance of following up with their Primary Care Physician. Patient stated understanding and was given an opportunity to ask any questions. Patient is in agreement with plan. Dragon Disclaimer: Draghugo Disclaimer: This electronic medical record was generated, in whole or in part, using a voice recognition dictation system. Departure Departure Impression: Primary Impression: UTI (lower urinary tract infection) Disposition: HOME, SELF-CARE Condition: STABLE Referrals: Shayna BEAUCHAMP MD (PCP) Patient Instructions: Urinary Tract Infection Scripts Cephalexin (KEFLEX) 500 Mg Capsule 1 CAP PO Q12HR for 10 Days, #20 CAP Prov: SAMIR PATRICIO MD 05/07/20 SAMIR PATRICIO MD May 07, 2020 01:12
[2020-05-07] MEDS ORDERED: ONDANSETRON ODT 4 MG TAB.RAPDIS. PO ONE (01:30)
[2020-05-07] MEDS ORDERED: AZITHROMYCIN 250 MG TABLET. PO ONE (01:30)
[2020-05-07] MEDS ORDERED: cefTRIAXone IM 250 MG VIAL IM ONE (01:30)
[2020-05-07] MEDS ORDERED: metroNIDAZOLE 500 MG TABLET PO ONE (01:30)
== END 2020-05-07 01:41 | disposition home or self-care (01) ==
LOC: ER 23:48
DX: N39.0 Urinary tract infection, site not specified (principal); Z90.49 Acquired absence of other specified parts of digestive tract
CPT/HCPCS: 81001; 81025; 87086; 87491; 87591; 96372; 99284; J0696

== ENCOUNTER 2021-08-14 19:08 | Emergency (ER) | payer OTHER ==
[~2021-08-14] VITALS: Ht 144.8 cm; Wt 54.0 kg
--- NOTE | 2021-08-14 19:40 | PHYS DOC ---
Past Medical History Past Medical History: No Pertinent History, Anxiety Additional Past Medical Histor: back pain Past Surgical History: No Surgical History Smoking Status: Never Smoker Alcohol Use: None Drug Use: None General Adult EDM: Chief Complaint: WEAKNESS/GENERALIZED HPI: HPI: Patient is a 35-year-old female who presents to the emergency department complaining of aches and pains all over, headaches, chills, throat pain for the past 2 weeks. Patient denies chest pain, shortness of breath, chest palpitations, nausea, vomiting, diarrhea or abdominal pains. Patient denies increased urination, hematuria, dysuria, burning with urination, or painful urination. Patient reports her last menstrual cycle was 3 weeks ago with normal duration and flow. Patient reports she was seen yesterday at [facility] emergency department and was tested for the COVID- 19 virus which was negative, patient reports the put her on Tessalon Perle for cough even though she is not coughing. Patient does report her primary care physician took her off her Xanax in which she takes for anxiety 3 months ago because of a possible overdose, patient reports if she had her Xanax back she would feel much better. Patient denies homicidal or suicidal ideation. Patient denies other physical complaints or physical concerns. Review of Systems: Review of Systems: 14 body systems of review of systems have been reviewed. See HPI for pertinent positives and negative responses, otherwise all other systems are negative, nonpertinent or noncontributory. Constitutional: Negative except as outlined in HPI above. Skin: Negative except as outlined in HPI above. Eyes: Negative except as outlined in HPI above. HENT: Negative except as outlined in HPI above. Respiratory: Negative except as outlined in HPI above. Cardiovascular: Negative except as outlined in HPI above. GI: Negative except as outlined in HPI above. : Negative except as outlined in HPI above. Musculoskeletal: Negative except as outlined in HPI above. Integument: Negative except as outlined in HPI above. Neurologic: Negative except as outlined in HPI above. Endocrine: Negative except as outlined in HPI above. Lymphatic: Negative except as outlined in HPI above. Psychiatric: Negative except as outlined in HPI above. Heart Score: C/O Chest Pain: No Risk Factors: Risk Factors: DM, Current or recent (<one month) smoker, HTN, HLP, family history of CAD, obesity. Risk Scores: Score 0 - 3: 2.5% MACE over next 6 weeks - Discharge Home Score 4 - 6: 20.3% MACE over next 6 weeks - Admit for Clinical Observation Score 7 - 10: 72.7% MACE over next 6 weeks - Early Invasive Strategies Allergies: Allergies: Allergies Coded Allergies Type Severity Reaction Last Updated Verified No Known Drug Allergies 11/27/14 No Physical Exam: PE: Constitutional: Well developed, well nourished, no acute distress, non-toxic appearance. [] HENT: Normocephalic, atraumatic, bilateral external ears normal, oropharynx moist, no oral exudates, nose normal. [] Eyes: PERRLA, EOMI, conjunctiva normal, no discharge. [] Neck: Normal range of motion, no tenderness, supple, no stridor. [] Cardiovascular:Heart rate regular rhythm, no murmur [] Lungs & Thorax: Bilateral breath sounds clear to auscultation [] Abdomen: Bowel sounds normal, soft, no tenderness, no masses, no pulsatile masses. [] Skin: Warm, dry, no erythema, no rash. [] Back: No tenderness, no CVA tenderness. [] Extremities: No tenderness, no cyanosis, no clubbing, ROM intact, no edema. [] Neurologic: Alert and oriented X 3, normal motor function, normal sensory function, no focal deficits noted. [] Psychologic: Affect normal, judgement normal, mood normal. [] Current Patient Data: Vital Signs: Vital Signs Date Time Temp Pulse Resp B/P (MAP) Pulse Ox O2 Delivery O2 Flow Rate FiO2 08/14/21 19:17 98.1 137 20 130/83 (99) Room Air 98.1 EKG: EKG: EKG performed at 1923 by ED nursing staff shows a sinus tachycardia without other ectopy, heart rate 115 bpm, OK interval 0.118, QTc interval 0.444, no acute STEMI, no ACS, no acute ischemia appreciated, EKG interpreted by ED attending physician Dr. Omer. Radiology/Procedures: Radiology/Procedures: REASON: Tachycardia PROCEDURE: CHEST AP ONLY EXAM: CHEST ONE VIEW. HISTORY: Tachycardia. COMPARISON: 05/20/1960. FINDINGS: A frontal view of the chest is obtained. The inspiration is small with mild bibasilar atelectasis. There is no pneumothorax or pleural effusion. The heart is not enlarged. Cholecystectomy clips are noted. IMPRESSION: 1. No confluent infiltrates. Electronically signed by: Johnnie Estes MD (08/14/2021 8:37 PM) [facility] STATUS: REG ER ORD. PHYSICIAN: AVNI FAGAN APRN REASON: Tachycardia, elevated D-dimer, PE study, OMNI 350 100 ML IV PROCEDURE: CT ANGIOGRAPHY CHEST CT arteriogram of the chest. HISTORY: Tachycardia, elevated d-dimer CT arteriogram of the chest was done using 99 mL Omnipaque contrast. Sagittal and coronal MIP images were reconstructed. There is no mediastinal adenopathy or pleural effusion. Visualized portions the liver and spleen are unremarkable. Adrenal glands are normal. There is mild atelectasis along the diaphragm on each side. There is mild atelectasis along the fissure in the left lung although minimal infiltrate is possible. This study is negative for a pulmonary embolus. IMPRESSION: 1. Negative for pulmonary embolus. 2. Mild dependent atelectasis. 3. Atelectasis versus minimal infiltrate along the major fissure on the left. 4. Negative for pulmonary embolus. Course & Med Decision Making: Course & Med Decision Making Pertinent Labs and Imaging studies reviewed. (See chart for details) 35-year-old female, vital signs reviewed, presents to the emergency department concerning ongoing generalized body aches and headaches for the past 2 weeks. Physical examination concerning for viral syndrome. We will order rapid flu and COVID testing, COVID 19 testing for PCR, CBC, CMP, EKG related to tachycardia with troponin I high-sensitivity, urinalysis assay with test. There is concern for COVID infection, with patient's presentation of tachycardia, pulmonary embolus is considered we will order D-dimer, if positive will order CT angio chest, there may be a component of anxiety to this tachycardia as patients main concern is her physician has stopped her Xanax prescription related to a possible reported overdose. The patient is not homicidal or suicidal. The patient is not hypoxic. Upon discussion of giving dose of Ativan, it was noted heart rate decreased from 130 down to 100. We will continue to monitor, labs pending at this time. Patient denies illicit drug use, patient is exhibiting anxious/odd behavior suspicious of illicit drug use, will order urine drug screen. Patient's CBC unremarkable, there is no leukocytosis, neutrophilia or bandemia appreciated, the patient is not anemic, patient's CMP unremarkable, CO2 level is 23, creatinine and liver enzymes within normal limits. The patient is not for urine hCG, urinalysis does not show urine nitrites, ketones, proteinuria, there is no leukocyte Estrace, there is a few bacteria reported with many squamous epithelial cells and urine mucus, most likely dirty catch, the urinalysis does however show yeast, will treat with Diflucan regimen. The patient's COVID rapid and flu rapid testing are pending at this time, the patient's D-dimer is elevated at 1.51. Wells score for PE is low risk, however PE cannot be ruled out per PERC rule, the patient does not complain of chest pain or shortness of breath, is not hypoxic however along with elevated D-dimer, tachycardia, patient anxious state, will order CT angio chest for PE study. The patient's rapid COVID test and rapid flu testing negative, COVID [address] angio chest nonconcerning for pulmonary emboli. Patient continues to complain of generalized body discomfort. Patient's vital signs have normalized, the patient is no longer tachycardic, remains 100% FiO2 sat on room air, is not tachypneic, denies shortness of breath or chest pain, normotensive, is not febrile. The patient's labs are nonconcerning for infectious process or electrolyte abnormality, the patient is asking for prescription of Xanax, related to patient's reported history of Xanax overdose, primary care physician will no longer give Xanax for anxiety, and urine drug screen concerning for illicit drug use, will defer any benzodiazepine prescription for home. Will give Tylenol and Motrin in ED for generalized body aches prior to discharge. Discussed strict follow-up with primary care tomorrow or Tuesday, return to ER precautions and concerns, patient gave verbal understanding of and is amenable to ED discharge planning. Discussed with the patient all findings and diagnostic testing as well as the need to follow-up with their primary care provider for further evaluation and treatment or return to the ED if any new or worsening symptoms. Strict return precautions were also discussed at length, the patient voiced understanding and agreement with the discharge planning. The patient was nontoxic in appearance, in no apparent distress, and hemodynamically stable at the time of disposition. Dragon Disclaimer: Dragon Disclaimer: This electronic medical record was generated, in whole or in part, using a voice recognition dictation system. Departure Departure Impression: Primary Impression: Viral syndrome Additional Impressions: Elevated d-dimer Person under investigation for COVID-19 Disposition: HOME / SELF CARE / HOMELESS Condition: GOOD Referrals: Shayna BEAUCHAMP MD (PCP) Patient Instructions: Viral Syndrome Additional Instructions: You were seen today in the emergency department for body aches all over. An extensive cardiac and respiratory work-up was performed in the emergency department today. You are not having a heart attack, your heart enzymes from your lab work did not show any signs of stress on the cardiac system, you do not have a pneumonia, you do not have a blood clot in your lung, I suspect your symptoms may be due to a viral syndrome. Your rapid flu and rapid COVID testing were negative in the ER today. The COVID-19 test by PCR is still pending, if positive you will be contacted at home with the telephone number you left with our admitting clerks. As we discussed, please continue to use Tylenol or Motrin for your ongoing body aches and pains. Please follow-up with your primary care physician tomorrow or Tuesday for ongoing symptoms. Return to the emergency department for worsening symptoms or other concerns. Thank you for visiting our Emergency Department. It was a pleasure taking care of you today in the emerge ncy department and we appreciate you trusting us with your care. If any additional problems come up don't hesitate to return to visit us. Please follow up with your primary care provider so they can plan additional care if needed and know about the problem that you had. If symptoms worsen come back to the Emergency Department. Any concerning symptoms that start such as chest pain, shortness of air, weakness or numbness on one side of the body, running high fevers or any other concerning symptoms return to the ER. EMERGENCY DEPARTMENT GENERAL DISCHARGE INSTRUCTIONS Thank you for coming to [facility] Emergency Department (ED) today and trusting us with you care. We trust that you had a positive experience in our Emergency Department. If you wish to speak to the department management, you may call the Director at [phone]. YOUR FOLLOW UP INSTRUCTIONS ARE FOLLOWS: 1. Do you have a private Doctor? If you do not have a private doctor, please ask for a resource list of physicians or clinics that may be able to assist you with follow up care. 2. The Emergency Physicain has interpreted your x-rays. The X-Ray specialist will also review them. If there is a change in the findings, you will be notified in 48 hours when at all possible. 3. A lab test or culture has been done, your results will be reviewed and you will be notified if you need a change in treatment. ADDITIONAL INSTRUCTIONS AND INFORMATION: 1. Your care today has been supervised by a physician who is specially trained in emergency care. Many problems require more than one evaluation for a complete diagnosis and treatment. We recommend that you schedule your follow up appointment as recommended to ensure complete treatment of you illness or injury. If you are unable to obtain follow up care and continue to have a problem, or if your condition worsens, we recommend that you return to the ED. 2. We are not able to safely determine your condition over the phone nor are we able to give sound medical advice over the phone. For these safety reasons, if you call for medical advice we will ask you to come to the ED for further evaluation. 3. If you have any questions regarding these discharge instructions please call the ED at [phone]. SAFETY INFORMATION: In the interest of safety, wellness, and injury prevention; we encourage you to wear your sealbelt, if you smoke; quite smoking, and we encourage family to use a protective helmet for bicycling and other sporting events that present an increased risk for head injury. IF YOUR SYMPTOMS WORSEN OR NEW SYMPTOMS DEVELOP, OR YOU HAVE CONCERNS ABOUT YOUR CONDITION; OR IF YOUR CONDITION WORSENS WHILE YOU ARE WAITING FOR YOUR FOLLOW UP APPOINTMENT; EITHER CONTACT YOUR PRIMARY CARE DOCTOR, THE PHYSICIAN WHOSE NAME AND NUMBER YOU WERE GIVEN, OR RETURN TO THE ED IMMEDIATELY. AVNI FAGAN APRN Aug 14, 2021 19:40
[2021-08-14] MEDS ORDERED: IV NORMAL SALINE 1000ML BAG 1,000 ML IV ONE (20:00)
[2021-08-14 20:06] LABS: BASO # 0.1 x10^3/uL (0.0-0.2); BASO % 1 % (0-3); EOS # 0.1 x10^3/uL (0.0-0.7); EOS % 1 % (0-3); HEMATOCRIT 41.4 % (36.0-47.0); HEMOGLOBIN 13.9 g/dL (12.0-15.5); LYMPH # 2.2 x10^3/uL (1.0-4.8); LYMPH % 21 % (24-48); MEAN CORPUSCULAR HEMOGLOBIN 28 pg (25-35); MEAN CORPUSCULAR HGB CONC 34 g/dL (31-37); MEAN CORPUSCULAR VOLUME 83 fL (79-100); MONO # 0.9 x10^3/uL (0.0-1.1); MONO % 8 % (0-9); NEUT # 7.6 x10^3/uL (1.8-7.7); NEUT % 70 % (31-73); PLATELET COUNT 215 x10^3/uL (140-400); RED BLOOD COUNT 4.96 x10^6/uL (3.50-5.40); RED CELL DISTRIBUTION WIDTH 13.7 % (11.5-14.5); WHITE BLOOD COUNT 10.9 x10^3/uL (4.0-11.0)
[2021-08-14 20:16] LABS: CALCIUM 8.3 mg/dL (8.5-10.1); CREATININE 0.8 mg/dL (0.6-1.0); GFR 82.6; POTASSIUM 3.8 mmol/L (3.5-5.1)
[2021-08-14 20:21] LABS: ALBUMIN 3.5 g/dL (3.4-5.0); ALBUMIN/GLOBULIN RATIO 0.8 (1.0-1.7); TOTAL BILIRUBIN 0.5 mg/dL (0.2-1.0); TOTAL PROTEIN 7.9 g/dL (6.4-8.2)
[2021-08-14 20:26] LABS: BILIRUBIN,URINE NEGATIVE (NEG); CLARITY,URINE TURBID; COLOR,URINE YELLOW; NITRITE,URINE NEGATIVE (NEG); PH,URINE 6.5 (<5.0-8.0); PROTEIN,URINE NEGATIVE (NEG-TRACE); UROBILINOGEN,URINE 0.2 mg/dL (0.2 mg/dL)
--- NOTE | 2021-08-14 20:39 | RAD ---
EXAM: CHEST ONE VIEW. HISTORY: Tachycardia. COMPARISON: 05/20/1960. FINDINGS: A frontal view of the chest is obtained. The inspiration is small with mild bibasilar atelectasis. There is no pneumothorax or pleural effusio n. The heart is not enlarged. Cholecystectomy clips are noted. IMPRESSION: 1. No confluent infiltrates. Electronically signed by: Johnnie Estes MD (08/14/2021 8:37 PM) [facility]
[2021-08-14 20:42] LABS: YEAST,URINE PRESENT /HPF
[2021-08-14 20:43] LABS: BACTERIA,URINE FEW /HPF (0-FEW)
[2021-08-14 20:52] LABS: RBC,URINE 0 /HPF (0-2); WBC,URINE RARE /HPF (0-4)
[2021-08-14] MEDS ORDERED: CONTRAST GIVEN. MC PRN (21:00)
[2021-08-14 21:23] LABS: AMPHETAMINE/METHAMPHETAMINE NEG (NEG); BARBITURATES NEG (NEG); BENZODIAZEPINES POS (NEG); CANNABINOIDS NEG (NEG); COCAINE NEG (NEG); METHADONE NEG (NEG); OPIATES POS (NEG); PHENCYCLIDINE POS (NEG)
[2021-08-14] MEDS ORDERED: IOHEXOL 350 MG/ML 100 ML VIAL. IV ONE (21:30)
--- NOTE | 2021-08-14 21:56 | RAD ---
CT arteriogram of the chest. HISTORY: Tachycardia, elevated d-dimer CT arteriogram of the chest was done using 99 mL Omnipaque contrast. Sagittal and coronal MIP images were reconstructed. There is no mediastinal adenopathy or pleural effusion. Visualized portions the l iver and spleen are unremarkable. Adrenal glands are normal. There is mild atelectasis along the diap hragm on each side. There is mild atelectasis along the fissure in the left lung although minimal inf iltrate is possible. This study is negative for a pulmonary embolus. IMPRESSION: 1. Negative for pulmonary embolus. 2. Mild dependent atelectasis. 3. Atelectasis versus minimal infiltrate along the major fissure on the left. 4. Negative for pulmonary embolus. PQRS Compliance Statement: One or more of the following individualized dose reduction techniques were utilized for this examinat ion: 1. Automated exposure control 2. Adjustment of the mA and/or kV according to patient size 3. Use of iterative reconstruction technique Electronically signed by: Shay Ordaz MD (08/14/2021 9:54 PM) [facility]
[2021-08-14 22:05] LABS: INFLUENZA A PATIENT NEGATIVE (NEGATIVE); INFLUENZA B PATIENT NEGATIVE (NEGATIVE)
[2021-08-14 22:43] VITALS: BP 136/93
[2021-08-14] MEDS ORDERED: IBUPROFEN 200 MG TABLET. PO ONE (23:30)
[2021-08-14] MEDS ORDERED: ACETAMINOPHEN 500 MG TABLET PO ONE (23:30)
--- NOTE | 2021-08-15 05:58 | EKG ---
[facility] [address] [place] [address] Test Date: 2021-08-14 Test Time: 19:23:55 Pat Name: SANTO CERON Department: Room: Gender: F Buffer Automatic: : 1985 Requested By: AVNI FAGAN Order Number: [id number] Reading MD: Franco Morton Measurements Intervals [place] Rate: 115 P: 65 PA: 118 QRS: 28 QRSD: 72 T: 42 QT: 320 QTc: 444 Interpretive Statements SINUS TACHYCARDIA NON SPECIFIC ST-T WAVE CHANGES RI6.01 No previous ECG available for comparison Electronically Signed On 08-15-2021 15:10:02 [employer] by Franco Morton
--- NOTE | 2021-08-17 14:13 | NUR ---
IP: Informed pt of positive covid test and the need to quarantine for 10 days. Pt verbalized understanding.
== END 2021-08-14 23:20 | disposition home or self-care (01) ==
LOC: ER 19:08
DX: U07.1 COVID-19 (principal); B34.9 Viral infection, unspecified; R79.1 Abnormal coagulation profile
CPT/HCPCS: 36415; 71045; 71275; 80053; 80307; 81001; 81025; 84484; 85025; 85379; 87428; 93005; 96360; 99285; J7030; Q9967; U0003; U0005

== ENCOUNTER → 2021-12-23 | Emergency (ER) | payer SELFPAY ==
[~2021-12-23] VITALS: Ht 144.8 cm; Wt 49.0 kg
[~2021-12-23] MED LIST changes: +FLUC100T6 PO; +FLUCONAZOLE 100 MG TABLET. PO ONE
[2021-12-23 01:36] VITALS: BP 126/86
--- NOTE | 2021-12-23 01:56 | PHYS DOC ---
Past Medical History Past Medical History: No Pertinent History, Anxiety Additional Past Medical Histor: back pain Past Surgical History: Cholecystectomy Smoking Status: Never Smoker Alcohol Use: Rarely Drug Use: None General Adult EDM: Chief Complaint: VAGINAL PROBLEM HPI: HPI: 36-year-old female, past medical history cholecystectomy, history of DVT, last menstrual period 1 week ago, presents with 1 week of vaginal itching. No discharge or bleeding. No urinary complaints. No fever, chills, nausea or vomiting or abdominal pain. Patient states she was seen at another ED and received IM ceftriaxone, p.o. Doxy and Flagyl however despite finishing the antibiotic course, she still is having symptoms. Review of Systems: Review of Systems: Constitutional: Denies fever or chills. [] Eyes: Denies change in visual acuity. [] HENT: Denies nasal congestion or sore throat. [] Respiratory: Denies cough or shortness of breath. [] Cardiovascular: Denies chest pain or edema. [] GI: Denies abdominal pain, nausea, vomiting, bloody stools or diarrhea. [] : Denies dysuria. []+ Vaginal itching Musculoskeletal: Denies back pain or joint pain. [] Integument: Denies rash. [] Neurologic: Denies headache, focal weakness or sensory changes. [] Endocrine: Denies polyuria or polydipsia. [] Lymphatic: Denies swollen glands. [] Psychiatric: Denies depression or anxiety. [] Heart Score: C/O Chest Pain: No Risk Factors: Risk Factors: DM, Current or recent (<one month) smoker, HTN, HLP, family history of CAD, obesity. Risk Scores: Score 0 - 3: 2.5% MACE over next 6 weeks - Discharge Home Score 4 - 6: 20.3% MACE over next 6 weeks - Admit for Clinical Observation Score 7 - 10: 72.7% MACE over next 6 weeks - Early Invasive Strategies Allergies: Allergies: Allergies Coded Allergies Type Severity Reaction Last Updated Verified No Known Drug Allergies 12/23/21 No Physical Exam: PE: Constitutional: Well developed, well nourished, no acute distress, non-toxic appearance. [] HENT: Normocephalic, atraumatic, bilateral external ears normal, oropharynx moist, no oral exudates, nose normal. [] Eyes: PERRLA, EOMI, conjunctiva normal, no discharge. [] Neck: Normal range of motion, no tenderness, supple, no stridor. [] Cardiovascular:Heart rate regular rhythm, no murmur [] Lungs & Thorax: Bilateral breath sounds clear to auscultation [] Abdomen: Bowel sounds normal, soft, no tenderness, no masses, no pulsatile masses. [] Skin: Warm, dry, no erythema, no rash. [] Back: No tenderness, no CVA tenderness. [] Extremities: No tenderness, no cyanosis, no clubbing, ROM intact, no edema. [] Neurologic: Alert and oriented X 3, normal motor function, normal sensory function, no focal deficits noted. [] Psychologic: Affect normal, judgement normal, mood normal. [] Pelvic: thick white discharge, no CMT Current Patient Data: Vital Signs: Vital Signs Date Time Temp Pulse Resp B/P (MAP) Pulse Ox O2 Delivery O2 Flow Rate FiO2 12/23/21 01:36 98.4 79 16 126/86 (99) 100 Room Air 98.4 EKG: EKG: [] Radiology/Procedures: Radiology/Procedures: [] Course & Med Decision Making: Course & Med Decision Making Pertinent Labs and Imaging studies reviewed. (See chart for details) Additional Social History: PMD from non-affiliated facility. Patient Lives at home. Family History: Non-pertinent to today's complaint. Nursing Notes Reviewed Previous Medical Records requested via [facility] Web: Reviewed by me. EMERGENCY DEPARTMENT COURSE/ MEDICAL DECISION MAKING: I examined the patient, evaluated and addressed patient's chief complaint. Pelvic exam showing thick white discharge. Suspicious for yeast infection, Ninfa vulvovaginitis. Already completed course of ceftriaxome IM, doxy and flagyl with no improvement in sx and and partner also treated and no intercourse. The patient was treated with fluconazole. The patient understands that todays Emergency Department evaluation does not represent a comprehensive medical workup, and it is impossible to diagnose all possible illnesses from a single Emergency Department visit. The patient verbalized understanding that it is absolutely necessary to have follow-up with regular primary care physician within 1-2 days for more detailed workup and continued exam. I explained the findings and plan to the patient, who expressed verbal understanding and agreed with plan for discharge and follow up. The patient was given after care instructions and welcomed to return to the ED for re-evaluation in 8-12 hours, especially for any new or worsening symptoms. Patient's blood pressure was elevated (>120/80) but appears stable without ev idence of end organ damage, malignant hypertension, hypertensive emergency or urgency. The patient was counseled about the risks of hypertension and urged to pursue outpatient monitoring and therapy within a week with their primary care physician. The patient was stable at the time of discharge. DIAGNOSTIC IMPRESSION: 1. Ninfa vulvovaginitis DISPOSITION: Disposition: Discharge Home. Condition: Improved Follow-Up: PMD Prescriptions: None Return to the Emergency Department for new or worsening symptoms. Dragon Disclaimer: Dragon Disclaimer: This electronic medical record was generated, in whole or in part, using a voice recognition dictation system. Departure Departure Impression: Primary Impression: Candidal vulvovaginitis Disposition: HOME / SELF CARE / HOMELESS Condition: STABLE Referrals: Shayna BEAUCHAMP MD (PCP) Scripts Fluconazole (FLUCONAZOLE) 100 Mg Tablet 1.5 TAB PO ONCE for If symptoms persist 72 hours, #2 TAB Prov: BEAR KENDRICK MD 12/23/21 BEAR KENDRICK MD December 23, 2021 01:56
[2021-12-23 02:27] LABS: BACTERIA,URINE FEW /HPF (0-FEW); RBC,URINE 0 /HPF (0-2); WBC,URINE RARE /HPF (0-4)
== END | disposition home or self-care (01) ==
LOC: ER 01:20
DX: B37.3 Candidiasis of vulva and vagina (principal); Z90.49 Acquired absence of other specified parts of digestive tract; Z86.718 Personal history of other venous thrombosis and embolism
CPT/HCPCS: 81001; 81025; 87491; 87591; 99284; Q0111; 99283